=== PATIENT | male | born 1985 | race Caucasian/White ===

== ENCOUNTER 2019-08-17 01:32 | Emergency (ER) | payer MEDICAID, OTHER ==
[~2019-08-17] VITALS: Ht 180.3 cm; Wt 90.7 kg
[2019-08-17 01:35] VITALS: BP 115/89
--- NOTE | 2019-08-17 01:35 | NUR ---
to bed # 06 ambulatory
--- NOTE | 2019-08-17 02:06 | NUR ---
34 YO MALE CO PAIN THAT RADIATES FROM LOWER BACK TO LEFT LEG X1W. PT STATES THAT MUSCLE TONE IN HIS LEG HAS DECREASED WELL. PT HAS HX OF SPINAL SURGERY. PT HAS NO OTHER MED HX AND NO RX MEDS BEING TAKEN.
--- NOTE | 2019-08-17 02:10 | NUR ---
Dr. Brooks examining patient.
--- NOTE | 2019-08-17 02:29 | NUR ---
PT ELOPED AT THIS TIME. ERMD MADE AWARE
--- NOTE | 2019-08-17 02:31 | NUR ---
PATIENT ELOPED FROM FACILITY. DISCHARGE INSTRUCTIONS NOT GIVEN TO PATIENT. DR. LANDRY NOTIFIED.
== END 2019-08-17 02:31 | disposition left against medical advice (07) ==
LOC: MED 01:32
DX: M79.605 Pain in left leg (principal)
CPT/HCPCS: 99281